=== PATIENT | female | born 1985 | race American Indian/Alaskan Native ===

== ENCOUNTER 2017-03-25 18:12 | Observation (INO) | payer OTHER ==
[2017-03-25 18:19] VITALS: RESP 16
[2017-03-25] MEDS ORDERED: Dexamethasone 10 MG in Sodium Chloride 0.9% 50 ML IVPB STA (18:26)
[2017-03-25] MEDS ORDERED: Sodium Chloride 0.9% 1,000 ML IV STA (18:26)
--- NOTE | 2017-03-25 18:36 | ED PDOC ---
HPI: Dental Pain/Injury Time Seen by Provider: 03/25/17 18:18 Chief Complaint (Nursing): Dental Pain Chief Complaint (Provider): Dental Pain History Per: Patient History/Exam Limitations: no limitations Onset/Duration Of Symptoms: Days (2x days) Current Symptoms Are (Timing): Still Present Severity: Moderate Additional Complaint(s): 31 year old female with no pertinent medical history presents to the ED with complaints of left sided throat pain accompanied by swelling to her bottom left jaw that started 2x days ago. She reports having the chills and taking tylenol with no relief. She denies having any rashes, abdominal pain, headaches, ear pain, sick contacts, or recent travel. PMD: Not provided. Past Medical History Reviewed: Historical Data, Nursing Documentation, Vital Signs Vital Signs: Last Vital Signs Temp 98.8 F 03/25/17 18:16 Pulse 88 03/25/17 18:16 Resp 16 03/25/17 18:16 BP 112/67 03/25/17 18:16 Pulse Ox 98 03/25/17 18:16 - Medical History PMH: Asthma - Family History Family History: States: No Known Family Hx - Social History Current smoker - smoking cessation education provided: No Alcohol: None Drugs: Denies - Home Medications Home Medications: Ambulatory Orders Medication Instructions Recorded Amoxicillin/Clavulanate [Augmentin 1 tab PO Q8 #30 tab 03/25/17 500 MG-125 MG] Naproxen [Naprosyn] 500 mg PO BID PRN #30 tab 03/25/17 - Allergies Allergies/Adverse Reactions: Allergies Allergy/AdvReac Type Severity Reaction Status Date / Time No Known Allergies Allergy Verified 03/25/17 18:25 Review of Systems Constitutional: Positive for: Chills. Negative for: Fever ENT: Positive for: Throat Pain (left sided), Other (swelling on patient's bottom left jaw). Negative for: Ear Pain Gastrointestinal: Negative for: Abdominal Pain Skin: Negative for: Rash Neurological: Negative for: Headache Physical Exam - Reviewed Nursing Documentation Reviewed: Yes Vital Signs Reviewed: Yes - Physical Exam Appears: Positive for: Well, Non-toxic, No Acute Distress Head Exam: Positive for: ATRAUMATIC, NORMOCEPHALIC ENT: Positive for: Other (left sided submandibular swelling with tenderness. able to swallow saliva. no trismus, no gingival swelling.). Negative for: Pharyngeal Erythema (no tonsillar erythema), Tonsillar Exudate, Tonsillar Swelling (no pharyngeal swelling) Respiratory: Positive for: Normal Breath Sounds. Negative for: Respiratory Distress Gastrointestinal/Abdominal: Positive for: Normal Exam, Soft. Negative for: Tenderness, Organomegaly Neurologic/Psych: Positive for: Alert, Oriented (3x) - Laboratory Results Result Diagrams: 03/25/17 18:53 03/25/17 18:53 - ECG O2 Sat by Pulse Oximetry: 98 (RA) Pulse Ox Interpretation: Normal - CT Scan/US CT soft tissue neck w/ contrast Other Rad Studies (CT/US): Read By Radiologist, Radiology Report Reviewed (see course treatment note for CT scan findings) - Progress ED Course And Treament: 21:10 CT soft tissue neck w/ contrast read and reviewed by radiologist FINDINGS: Nasopharynx: Unremarkable as visualized. Oropharynx: Unremarkable as visualized. No significant tonsillar enlargement. No peritonsillar abscess. Hypopharynx: Unremarkable as visualized. Larynx: Unremarkable as visualized. Normal epiglottis. Trachea: Unremarkable as visualized. Retropharyngeal space: Unremarkable as visualized. Submandibular/parotid glands: Left sub-mandibular gland appears minimally prominent compared to the right. Adenopathy surrounds the left mandibular gland. The largest adjacent node is superficial to the gland measuring 1.6 x 0.9 x 1.1 cm Thyroid: No enlarged or calcified nodules. Bones: No acute fracture. Vasculature: No acute findings. Lung apices: Unremarkable as visualized. IMPRESSION: Left sub-mandibular gland appears minimally prominent compared to the right. Adenopathy surrounds the left mandibular gland. The largest adjacent node is superficial to the gland measuring 1.6 x 0.9 x 1.1 cm. Correlate clinically for sialadenitis versus other cause of adenopathy. Further evaluation can be performed with dedicated ultrasound or tissue sampling as warranted Medical Decision Making Medical Decision Makin:18 Initial impression: 31 year old female with dental pain and throat pain. Initial plan: * CT neck soft tissue * CMP * CBC * decadron inj 10mg sodium chloride .9% 50 ml IVPB * IV NS 1,000ml IV 1,000 mls/hr * blood culture * rapid strep group A antigen * mono * reevaluation 18:25 Patient is being placed into ED observation pending CT scan, labs, reevaluation , and final disposition. Scribe Attestation: Documented by Maira Hollis, acting as a scribe for Isaias Ness Provider Scribe Attestation: All medical record entries made by the Scribe were at my direction and personally dictated by me. I have reviewed the chart and agree that the record accurately reflects my personal performance of the history, physical exam, medical decision making, and the department course for this patient. I have also personally directed, reviewed, and agree with the discharge instructions and disposition. ED OBSERVATION Discharge: Yes Date of observation admission: 03/25/17 Time of observation admission: 18:25 - Observation admission statement Patient is being placed in observation because:: Need for additional diagnostics to rule out acute or life threatening condition. - Goals of Observation Goals of observation are:: Resolution of symptoms. - Progress Note Progress Note: 03/25/17 18:45 Patient is resting comfortably. No complaints at this time. 03/25/17 21:47 Toradol 15mg IV given. Case, labs, and CT d/w Dr. Aguiar who states pt. can be dc'd with Augmentin and naproxen without any further testing. Pt. informed of results and necessary f/u. Instructed to f/u with Dr. Perez, pt 's PMD, without fail. Disposition - Clinical Impression Clinical Impression: Sialadenitis - Patient ED Disposition Is Patient to be Admitted: No - Disposition Disposition: Routine/Home Disposition Time: 21:48 Condition: STABLE
[2017-03-25 19:14] LABS: BASO # 0.1 K/uL (0.0-0.2); EOS # 0.2 K/uL (0.0-0.7); EOS % 4.3 % (0.0-4.0); HEMATOCRIT 37.2 % (34.0-47.0); LYMPH # 1.6 K/uL (1.0-4.3); LYMPH % 29.2 % (20.0-40.0); MEAN CELL VOLUME 87.3 fl (81.0-99.0); MEAN CORPUSCULAR HEMOGLOBIN 28.7 pg (27.0-31.0); MEAN CORPUSCULAR HGB CONC 32.9 g/dL (33.0-37.0); MONO # 0.5 K/uL (0.0-0.8); MONO % 8.5 % (0.0-10.0); NEUT # 3.2 K/uL (1.8-7.0); RED CELL DISTRIBUTION WIDTH 13.4 % (11.5-14.5); WHITE BLOOD COUNT 5.6 K/uL (4.8-10.8)
[2017-03-25 19:15] LABS: ALB/GLOB RATIO 1.4 (1.0-2.1); ALKALINE PHOSPHATASE 94 U/L (38-126); ALT/SGPT 28 U/L (9-52); AST/SGOT 19 U/L (14-36); BILIRUBIN,TOTAL 0.4 mg/dl (0.2-1.3); BLOOD UREA NITROGEN 10 mg/dl (7-17); CALCIUM 9.4 mg/dL (8.4-10.2); CARBON DIOXIDE 24 mmol/L (22-30); CHLORIDE 105 mmol/L (98-107); GFR AFRICAN-AMERICAN > 60; GLUCOSE,RANDOM 90 mg/dL (65-105); POTASSIUM 3.8 MMOL/L (3.6-5.0); SODIUM 139 mmol/l (132-148); TOTAL PROTEIN 7.9 G/DL (6.3-8.2)
[2017-03-25] MEDS ORDERED: Sodium Chloride 0.9% 50 ML IV ONE (20:15)
[2017-03-25] MEDS ORDERED: Iohexol 300 100 ML IJ ONE (20:15)
--- NOTE | 2017-03-25 21:11 | CT ---
EXAM: CT Neck With Intravenous Contrast CLINICAL HISTORY: 31 years old, female; Signs and symptoms; Other: Swelling; Additional info: L sided submandibular swelling and pain TECHNIQUE: Axial computed tomography images of the neck with intravenous contrast. This CT exam was performed using one or more of the following dose reduction techniques: automated exposure control, adjustment of the mA and/or kV according to patient size, and/or use of iterative reconstruction technique. Coronal and sagittal reformatted images were created and reviewed. CONTRAST: 95 mL of [id number] administered intravenously. COMPARISON: No relevant prior studies available. FINDINGS: Nasopharynx: Unremarkable as visualized. Oropharynx: Unremarkable as visualized. No significant tonsillar enlargement. No peritonsillar abscess. Hypopharynx: Unremarkable as visualized. Larynx: Unremarkable as visualized. Normal epiglottis. Trachea: Unremarkable as visualized. Retropharyngeal space: Unremarkable as visualized. Submandibular/parotid glands: Left sub-mandibular gland appears minimally prominent compared to the right. Adenopathy surrounds the left mandibular gland. The largest adjacent node is superficial to the gland measuring 1.6 x 0.9 x 1.1 cm Thyroid: No enlarged or calcified nodules. Bones: No acute fracture. Vasculature: No acute findings. Lung apices: Unremarkable as visualized. IMPRESSION: Left sub-mandibular gland appears minimally prominent compared to the right. Adenopathy surrounds the left mandibular gland. The largest adjacent node is superficial to the gland measuring 1.6 x 0.9 x 1.1 cm. Correlate clinically for sialadenitis versus other cause of adenopathy. Further evaluation can be performed with dedicated ultrasound or tissue sampling as warranted.
[2017-03-25 22:22] VITALS: BP 113/63; PULSE 78; TEMP 98.7
[2017-03-25 23:37] VITALS: O2SAT 98
== END 2017-03-25 21:49 | disposition home or self-care (01) ==
LOC: H.ER 18:12 → H.EROBSV 18:25
PROVIDERS: ADMIT Emergency Medicine; ATTEND Emergency Medicine
DX: K11.20 Sialoadenitis, unspecified (principal); J45.909 Unspecified asthma, uncomplicated; K08.89 Other specified disorders of teeth and supporting structures; R07.0 Pain in throat; R59.9 Enlarged lymph nodes, unspecified; R68.83 Chills (without fever)